=== PATIENT | female | born 1945 | race Caucasian/White ===

== ENCOUNTER → 2017-01-18 | Outpatient (REF) | payer MEDICARE ==
[~2017-01-18] MED LIST: /WARF25TA; /WARF25TA PO; ALEV220C2 PO; ALEVE PO; ALLO100T PO; ALLOPOW4 PO; APAP325T PO; ASPI81TA85 PO; ATOR40TA PO; ATORVASTATIN PO; BABY81CH PO; DARV100T; FISH500C PO; FISHCAP PO; GLUC15002 PO; GLUCTAB6; OMEGA 3 FISH OIL; OMEGA 3 PO; PERC5TAB8; PERCOCET PO; POT CITRATE PO; POTA10TAB PO; RECLAST INJ; THERGRAN PO; TYLE325T5 PO; VITA100T5; VITA500T68 PO; VITAMIN C/ROSE HIPS PO; [UNRECOGNIZED DRUG - OTHER]; [UNRECOGNIZED DRUG - OTHER] PO
[2017-01-18 12:45] LABS: ANION GAP 8 MEQ/L (8-16); BLOOD UREA NITROGEN 26 MG/DL (7-18); CALCIUM LEVEL 9.9 MG/DL (8.8-10.2); CARBON DIOXIDE LEVEL 28 MEQ/L (21-32); CHLORIDE LEVEL 108 MEQ/L (98-107); CREATININE FOR GFR 0.83 MG/DL (0.55-1.02); GLOMERULAR FILTRATION RATE > 60.0 (>39); GLUCOSE, FASTING 92 MG/DL (83-110); SODIUM LEVEL 144 MEQ/L (136-145)
== END ==
LOC: M LABDRAW1 11:33
PROVIDERS: ATTEND Internal Medicine Endocrinology, Diabetes & Metabolism
DX: M81.0 Age-related osteoporosis without current pathological fracture (principal); E04.0 Nontoxic diffuse goiter

== ENCOUNTER → 2017-02-22 | Outpatient (REF) | payer MEDICARE ==
[2017-02-22 13:17] LABS: TOTAL PROTEIN 6.7 GM/DL (6.4-8.2)
[2017-02-24 10:04] LABS: ALBUMIN 3.66 GM/DL (3.29-5.55); ALBUMIN % 54.7 % (55.8-66.1); GAMMA GLOBULIN % 13.9 % (11.1-18.8)
== END ==
LOC: M LAB REF 12:30
PROVIDERS: ATTEND Internal Medicine
DX: E83.52 Hypercalcemia (principal)

== ENCOUNTER → 2017-04-21 | Outpatient (REF) | payer MEDICARE ==
[2017-04-21 20:22] LABS: CALCIUM LEVEL 9.7 MG/DL (8.8-10.2); CREATININE FOR GFR 1.1 MG/DL (0.55-1.02); POTASSIUM SERUM 4.4 MEQ/L (3.5-5.1)
== END ==
LOC: M LABDRAW1 16:59
PROVIDERS: ATTEND Internal Medicine Endocrinology, Diabetes & Metabolism
DX: M81.0 Age-related osteoporosis without current pathological fracture (principal)

== ENCOUNTER → 2017-04-22 | Outpatient (REF) | payer MEDICARE | LOC: M LAB REF 16:24 | PROVIDERS: ATTEND Nurse Practitioner Adult Health | DX: N85.7 Hematometra (principal); N77.1 Vaginitis, vulvitis and vulvovaginitis in diseases classified elsewhere ==

== ENCOUNTER → 2017-10-11 | Outpatient (CLI) | payer MEDICARE ==
[~2017-10-11] MED LIST changes: -APAP325T PO; +APAP325T4 PO; -ATOR40TA PO; +ATOR40TA75 PO
--- NOTE | 2017-10-11 10:09 | REPMRS ---
Patient History The patient states she has not had a clinical breast exam in over a year. Family history of unknown cancer in father at age 65. Digital Mammo Screening Bilat: October 11, 2017 - Exam #: [id number] Bilateral CC and MLO view(s) were taken. Technologist: Argentina Mejia, Technologist Prior study comparison: September 23, 2016, bilateral digital mammo screening bilat performed at [facility]. August 07, 2015, bilateral digital mammo screening bilat performed at [facility]. FINDINGS: The breast tissue is heterogeneously dense. This may lower the sensitivity of mammography. There has been no change in the appearance of the mammogram from the prior studies. There is a moderate amount of residual fibroglandular tissue which is fairly symmetric. There is no interval development of dominant mass, areas of architectural distortion, or clustered microcalcification typical of malignancy. ASSESSMENT: BI-RADS/ACR category 1 mammogram. Negative. Recommendation Routine screening mammogram in 1 year (for women over age 40). This mammogram was interpreted with the aid of an FDA-approved computer-aided dectection system. Electronically Signed By: Alberto Perez MD 10/11/17 [id number]
== END ==
LOC: M RAD 08:25
PROVIDERS: ATTEND Internal Medicine
DX: Z12.31 Encounter for screening mammogram for malignant neoplasm of breast (principal)

== ENCOUNTER → 2018-01-17 | Outpatient (REF) | payer MEDICARE ==
[2018-01-17 13:06] LABS: ANION GAP 8 MEQ/L (8-16); BLOOD UREA NITROGEN 29 MG/DL (7-18); CALCIUM LEVEL 10.9 MG/DL (8.8-10.2); CARBON DIOXIDE LEVEL 29 MEQ/L (21-32); CHLORIDE LEVEL 103 MEQ/L (98-107); CREATININE FOR GFR 0.84 MG/DL (0.55-1.30); GLOMERULAR FILTRATION RATE > 60.0 (>39); GLUCOSE, FASTING 82 MG/DL (70-100); POTASSIUM SERUM 4.4 MEQ/L (3.5-5.1); SODIUM LEVEL 140 MEQ/L (136-145)
== END ==
LOC: M LABDRAW1 10:58
DX: M81.0 Age-related osteoporosis without current pathological fracture (principal)
CPT/HCPCS: 80048

== ENCOUNTER → 2018-10-12 | Outpatient (CLI) | payer MEDICARE | LOC: M RAD 10:09 | DX: Z12.31 Encounter for screening mammogram for malignant neoplasm of breast (principal) | CPT/HCPCS: 77067 ==

== ENCOUNTER → 2019-01-30 | Outpatient (REF) | payer MEDICARE ==
[~2019-01-30] MED LIST changes: +POTA10808 PO; -POTA10TAB PO
[2019-01-30 13:34] LABS: BLOOD UREA NITROGEN 29 MG/DL (7-18); CALCIUM LEVEL 10.5 MG/DL (8.8-10.2); CARBON DIOXIDE LEVEL 29 MEQ/L (21-32); CHLORIDE LEVEL 106 MEQ/L (98-107); CREATININE FOR GFR 0.83 MG/DL (0.55-1.30); GLOMERULAR FILTRATION RATE > 60.0 (>39); GLUCOSE, FASTING 87 MG/DL (70-100); POTASSIUM SERUM 4.6 MEQ/L (3.5-5.1); SODIUM LEVEL 141 MEQ/L (136-145)
[2019-01-30 13:45] LABS: TOTAL 25(OH) VITAMIN D 27.2 NG/ML (30.0-100.0)
== END ==
LOC: M LABDRAW1 12:53
PROVIDERS: ATTEND Internal Medicine Endocrinology, Diabetes & Metabolism
DX: M81.0 Age-related osteoporosis without current pathological fracture (principal); E04.0 Nontoxic diffuse goiter; E83.52 Hypercalcemia

== ENCOUNTER → 2019-02-28 | Outpatient (REF) | payer MEDICARE ==
[~2019-02-28] MED LIST changes: -/WARF25TA; -/WARF25TA PO; +COUM1TAB18; +COUM1TAB18 PO; +OXYC1TAB23 PO; -PERCOCET PO; +VITA-149 PO; -VITA500T68 PO
== END ==
LOC: M LAB REF 14:22
PROVIDERS: ATTEND Nurse Practitioner Family
DX: N76.1 Subacute and chronic vaginitis (principal)

== ENCOUNTER → 2019-09-07 | Outpatient (REF) | payer MEDICARE | LOC: M LAB REF 16:28 | PROVIDERS: ATTEND Registered Nurse | DX: N39.0 Urinary tract infection, site not specified (principal) ==

== ENCOUNTER → 2019-09-24 | Outpatient (REF) | payer MEDICARE | LOC: M LAB REF 12:38 | PROVIDERS: ATTEND Internal Medicine | DX: E83.52 Hypercalcemia (principal) ==

== ENCOUNTER → 2019-10-15 | Outpatient (CLI) | payer MEDICARE ==
--- NOTE | 2019-10-15 15:39 | REPMRS ---
Patient History The patient states she has not had a clinical breast exam in over a year. Family history of unknown cancer at age 65 in father. 3D TOMOSYNTHESIS WAS PERFORMED. The Gisela Harris lifetime risk for breast cancer is 2.9%. Digital Mammo Screening Bilat: October 15, 2019 - Exam #: [id number] Bilateral CC and MLO view(s) were taken. Technologist: Argentina Mejia, Technologist Prior study comparison: October 12, 2018, bilateral digital mammo screening bilat performed at [facility]. October 11, 2017, bilateral digital mammo screening bilat performed at [facility]. FINDINGS: The breast tissue is heterogeneously dense. This may lower the sensitivity of mammography. There has been no change in the appearance of the mammogram from the prior studies. There is a moderate amount of residual fibroglandular tissue which is fairly symmetric. There is no interval development of dominant mass, areas of architectural distortion, or clustered microcalcification typical of malignancy. Assessment: BI-RADS/ACR category 1 mammogram. Negative Mammogram. Recommendation Routine screening mammogram in 1 year (for women over age 40). This mammogram was interpreted with the aid of an FDA-approved computer-aided dectection system. Electronically Signed By: Alberto Perez MD 10/15/19 [id number]
== END ==
LOC: M RAD 08:20
PROVIDERS: ATTEND Internal Medicine
DX: Z12.31 Encounter for screening mammogram for malignant neoplasm of breast (principal)

== ENCOUNTER → 2019-11-23 | Outpatient (REF) | payer MEDICARE | LOC: M LAB REF 16:27 | PROVIDERS: ATTEND Registered Nurse | DX: N39.0 Urinary tract infection, site not specified (principal) ==

== ENCOUNTER → 2019-12-07 | Outpatient (REF) | payer MEDICARE ==
[2019-12-07 14:17] LABS: APPEARANCE, URINE CLEAR (CLEAR); BACTERIA, URINE AUTO NEGATIVE (NEGATIVE); BILIRUBIN, URINE AUTO NEGATIVE (NEGATIVE); BLOOD, URINE BLOOD NEGATIVE (NEGATIVE); COLOR, URINE YELLOW (YELLOW); GLUCOSE, URINE (UA) AUTO NEGATIVE (NEGATIVE); KETONE, URINE AUTO NEGATIVE (NEGATIVE); LEUKOCYTE ESTERASE, URINE AUTO NEGATIVE (NEGATIVE); MUCUS, URINE SMALL (NEGATIVE); NITRITE, URINE AUTO NEGATIVE (NEGATIVE); PROTEIN, URINE AUTO NEGATIVE (NEGATIVE); RBC, URINE AUTO 1 /HPF (0-3); SPECIFIC GRAVITY URINE AUTO 1.014 (1.002-1.035); SQUAMOUS EPITHELIAL CELL UR AU 0 /HPF (0-6); UROBILINOGEN, URINE AUTO 0.2 mg/dL (0.0-2.0); WBC, URINE AUTO 1 /HPF (0-3)
== END ==
LOC: M SMT 13:43
PROVIDERS: ATTEND Nurse Practitioner Family
DX: N39.0 Urinary tract infection, site not specified (principal); R32 Unspecified urinary incontinence
CPT/HCPCS: 51798; 81001; 87086; G0463

== ENCOUNTER → 2019-12-11 | Outpatient (CLI) | payer MEDICARE ==
--- NOTE | 2019-12-11 10:24 | REP ---
LIMITED PELVIC/BLADDER SONOGRAPHY: HISTORY: Urinary tract infection symptoms recurrent. FINDINGS: Visualized bladder cardenas are smooth. No extra-vesicle lesion is seen. Pre void bladder volume is calculated at 125 mL. Emptying ureteral jets are confirmed from both ureters on color Doppler interrogation of the bladder lumen. Postvoid imaging demonstrates calculated bladder volume of 11 mL (postvoid residual 8.8%). IMPRESSION: Unremarkable bladder sonography. Electronically Signed by Femi Gallego MD 12/11/2019 01:08 P
--- NOTE | 2019-12-11 10:24 | REP ---
URINARY TRACT SONOGRAPHY: History: UTI symptoms. Findings: Renal cortical echogenicity pattern is normal. There is no evidence of hydronephrosis on either side. Right renal dimensions are 10.0 x 4.9 x 5.5 cm. Left kidney measures 9.8 x 4.4 x 4.0 cm. There are bilateral renal cortical cysts. Two cysts are seen in the medial aspect of the right kidney measuring 2.0 and 1.7 cm in greatest diameter respectively. There is a lower pole cyst in the left kidney measuring 2.4 cm in greatest diameter. There are echogenic foci in the central renal sinus complex bilaterally which could reflect intrarenal calculi. Impression: Possible intrarenal calculi bilaterally. No hydronephrosis. Small bilateral renal cortical cysts. Electronically Signed by Femi Gallego MD 12/11/2019 01:09 P
== END ==
LOC: M RAD 08:25
PROVIDERS: ATTEND Nurse Practitioner Family
DX: N39.0 Urinary tract infection, site not specified (principal)

== ENCOUNTER → 2019-12-31 | Outpatient (REF) | payer MEDICARE ==
[2019-12-31 16:32] LABS: THYROID STIMULATING HORMONE 1.34 uIU/ML (0.358-3.740)
[2019-12-31 16:34] LABS: TOTAL 25(OH) VITAMIN D 44.4 NG/ML (30.0-100.0)
== END ==
LOC: M LABDRAW1 15:37
PROVIDERS: ATTEND Internal Medicine Endocrinology, Diabetes & Metabolism
DX: E04.0 Nontoxic diffuse goiter (principal); M81.0 Age-related osteoporosis without current pathological fracture

== ENCOUNTER → 2020-01-31 | Outpatient (REF) | payer MEDICARE ==
[2020-01-31 14:01] LABS: BACTERIA, URINE AUTO 1+ (NEGATIVE); MUCUS, URINE SMALL (NEGATIVE); RBC, URINE AUTO 3 /HPF (0-3); SQUAMOUS EPITHELIAL CELL UR AU 0 /HPF (0-6); WBC, URINE AUTO 66 /HPF (0-3)
== END ==
LOC: M SMT 13:00
PROVIDERS: ATTEND Specialist
DX: N39.0 Urinary tract infection, site not specified (principal)

== ENCOUNTER 2020-02-07 18:41 | Emergency (ER) | payer MEDICARE ==
[~2020-02-07] VITALS: Ht 162.6 cm; Wt 65.1 kg
[2020-02-07] MEDS ORDERED: dexameTHASONE 20 MG/5 ML VIAL (J1100) IV ONE (19:00)
[2020-02-07] MEDS ORDERED: NS 1,000 ML IV ONE (19:00)
[2020-02-07] MEDS ORDERED: FAMOTIDINE INJ 20MG/2ML VIAL (S0028) IVP ONE (19:00)
[2020-02-07] MEDS ORDERED: SULF1TAB93 (19:00)
[2020-02-07] MEDS ORDERED: METH-855 (19:04)
[2020-02-07] MEDS ORDERED: PRED10TA2 PO (19:04)
[2020-02-07 19:13] LABS: BASO # 0.1 10^3/uL (0.0-0.2); BASO % 0.7 % (0.0-1.0); EOS # 0.3 10^3/uL (0.0-0.5); EOS % 4.2 % (0.0-3.0); HEMATOCRIT 47.8 % (36.0-47.0); HEMOGLOBIN 15.5 g/dl (12.0-15.5); LYMPH # 3.4 10^3/uL (1.5-5.0); LYMPH % 47.6 % (24.0-44.0); MEAN CORPUSCULAR HEMOGLOBIN 28.9 pg (27.0-33.0); MEAN CORPUSCULAR HGB CONC 32.4 g/dl (32.0-36.5); MONO # 0.4 10^3/uL (0.0-0.8); MONO % 5.8 % (0.0-5.0); NEUTROPHILS % 41.4 % (36.0-66.0); PLATELET COUNT, AUTOMATED 350 10^3/uL (150-450); RED BLOOD COUNT 5.37 10^6/uL (4.00-5.40); WHITE BLOOD COUNT 7.2 10^3/uL (4.0-10.0)
[2020-02-07] MEDS ORDERED: EPINEPHrine INJ 1 MG/ML 1ML VIAL IM STA (19:14)
[2020-02-07] MEDS ORDERED: EPINEPHrine INJ 1 MG/ML 1ML VIAL As Ordered ONE (19:16)
[2020-02-07 19:29] LABS: CALCIUM LEVEL 10.8 MG/DL (8.8-10.2); CREATININE FOR GFR 1.19 MG/DL (0.55-1.30); GLOMERULAR FILTRATION RATE 47.1 (>39); POTASSIUM SERUM 4.1 MEQ/L (3.5-5.1)
--- NOTE | 2020-02-07 19:47 | REP ---
Portable chest x-ray: Single view. History: Dyspnea and cough. Comparison chest x-ray: April 25, 2014. Findings: EKG electrodes are seen. Right hemidiaphragm is somewhat elevated. Lungs are well inflated and clear. Heart is not enlarged. Pulmonary vasculature is not increased. Impression: No active disease. Electronically Signed by Femi Gallego MD 02/07/2020 07:49 P
[2020-02-07 23:30] VITALS: BP 132/79
== END 2020-02-07 23:56 | disposition home or self-care (01) ==
LOC: M ED 18:41
DX: R21 Rash and other nonspecific skin eruption (principal); R22.1 Localized swelling, mass and lump, neck; T36.8X5A Adverse effect of other systemic antibiotics, initial encounter; Y92.099 Unspecified place in other non-institutional residence as the place of occurrence of the external cause; Y93.9 Activity, unspecified; M81.0 Age-related osteoporosis without current pathological fracture; E78.5 Hyperlipidemia, unspecified; Z87.442 Personal history of urinary calculi; Z87.440 Personal history of urinary (tract) infections; Z86.19 Personal history of other infectious and parasitic diseases; Z79.82 Long term (current) use of aspirin; Z79.899 Other long term (current) drug therapy; Z88.5 Allergy status to narcotic agent
CPT/HCPCS: 36415; 71045; 80048; 85025; 93041; 94760; 96361; 96372; 96374; 96375; 99285; J1100

== ENCOUNTER → 2020-05-07 | Outpatient (REF) | payer MEDICARE ==
[~2020-05-07] MED LIST changes: +METH-855; +PRED10TA2 PO; +SULF1TAB93
== END ==
LOC: M LAB REF 12:07
PROVIDERS: ATTEND Internal Medicine
DX: M54.2 Cervicalgia (principal)

== ENCOUNTER → 2020-05-16 | Outpatient (CLI) | payer MEDICARE ==
[2020-05-16 16:12] LABS: CREATININE FOR GFR 1.1 MG/DL (0.55-1.30); GLOMERULAR FILTRATION RATE 51.5 (>39)
== END ==
LOC: M LAB 15:28
PROVIDERS: ATTEND Physical Medicine & Rehabilitation
DX: M50.31 Other cervical disc degeneration, high cervical region (principal)

== ENCOUNTER → 2020-09-19 | Outpatient (REF) | payer MEDICARE ==
[~2020-09-19] MED LIST changes: -ASPI81TA85 PO; +ASPI81TA86 PO
== END ==
LOC: M LAB REF 12:41
PROVIDERS: ATTEND Internal Medicine
DX: R19.7 Diarrhea, unspecified (principal)

== ENCOUNTER → 2020-10-16 | Outpatient (REF) | payer MEDICARE ==
[2020-10-16 17:28] LABS: AMORPHOUS SEDIMENT SMALL (NEGATIVE); APPEARANCE, URINE HAZY (CLEAR); BACTERIA, URINE AUTO NEGATIVE (NEGATIVE); BILIRUBIN, URINE AUTO NEGATIVE (NEGATIVE); BLOOD, URINE BLOOD NEGATIVE (NEGATIVE); CALCIUM OXALATE CRYSTALS SMALL; COLOR, URINE YELLOW (YELLOW); GLUCOSE, URINE (UA) AUTO NEGATIVE (NEGATIVE); KETONE, URINE AUTO NEGATIVE (NEGATIVE); LEUKOCYTE ESTERASE, URINE AUTO TRACE (NEGATIVE); MUCUS, URINE SMALL (NEGATIVE); NITRITE, URINE AUTO NEGATIVE (NEGATIVE); PROTEIN, URINE AUTO NEGATIVE (NEGATIVE); RBC, URINE AUTO 0 /HPF (0-3); SPECIFIC GRAVITY URINE AUTO 1.015 (1.002-1.035); SQUAMOUS EPITHELIAL CELL UR AU 0 /HPF (0-6); UROBILINOGEN, URINE AUTO 0.2 mg/dL (0.0-2.0); WBC, URINE AUTO 2 /HPF (0-3)
== END ==
LOC: M SMT 17:07
PROVIDERS: ATTEND Nurse Practitioner Women's Health
DX: R30.0 Dysuria (principal)

== ENCOUNTER → 2021-03-04 | Outpatient (CLI) | payer MEDICARE ==
--- NOTE | 2021-03-04 13:43 | REPMRS ---
Patient History The patient states she has not had a clinical breast exam in over a year. Family history of unknown cancer at age 65 in father. 3D TOMOSYNTHESIS WAS PERFORMED. The Gisela Harris lifetime risk for breast cancer is 2.6%. Volpara breast density c. Digital Woman Screen Mammo: March 04, 2021 - Exam #: [id number] Bilateral CC and MLO view(s) were taken. Technologist: Amada Mackey, Technologist Prior study comparison: October 15, 2019, bilateral digital mammo screening bilat, performed at [facility]. October 12, 2018, bilateral digital mammo screening bilat, performed at [facility]. FINDINGS: The breast tissue is heterogeneously dense. This may lower the sensitivity of mammography. There has been no change in the appearance of the mammogram from the prior studies. There is a moderate amount of residual fibroglandular tissue which is fairly symmetric. There is no interval development of dominant mass, areas of architectural distortion, or clustered microcalcification typical of malignancy. Assessment: BI-RADS/ACR category 1 mammogram. Negative Mammogram. Recommendation Routine screening mammogram in 1 year (for women over age 40). This mammogram was interpreted with the aid of an FDA-approved computer-aided dectection system. Electronically Signed By: Alberto Perez MD 03/04/21 [id number]
== END ==
LOC: M WHC 12:49
PROVIDERS: ATTEND Internal Medicine
DX: Z12.31 Encounter for screening mammogram for malignant neoplasm of breast (principal); Z80.9 Family history of malignant neoplasm, unspecified

== ENCOUNTER → 2021-03-26 | Outpatient (REF) | payer MEDICARE ==
[2021-03-26 15:36] LABS: APPEARANCE, URINE CLEAR (CLEAR); BACTERIA, URINE AUTO NEGATIVE (NEGATIVE); BILIRUBIN, URINE AUTO NEGATIVE (NEGATIVE); BLOOD, URINE BLOOD NEGATIVE (NEGATIVE); COLOR, URINE YELLOW (YELLOW); GLUCOSE, URINE (UA) AUTO NEGATIVE (NEGATIVE); KETONE, URINE AUTO NEGATIVE (NEGATIVE); LEUKOCYTE ESTERASE, URINE AUTO 1+ (NEGATIVE); MUCUS, URINE SMALL (NEGATIVE); NITRITE, URINE AUTO NEGATIVE (NEGATIVE); PROTEIN, URINE AUTO NEGATIVE (NEGATIVE); RBC, URINE AUTO 0 /HPF (0-3); SPECIFIC GRAVITY URINE AUTO 1.018 (1.002-1.035); SQUAMOUS EPITHELIAL CELL UR AU 0 /HPF (0-6); UROBILINOGEN, URINE AUTO 0.2 mg/dL (0.0-2.0); WBC, URINE AUTO 1 /HPF (0-3)
== END ==
LOC: M SMT 14:58
PROVIDERS: ATTEND Nurse Practitioner Family
DX: R30.0 Dysuria (principal)

== ENCOUNTER → 2021-05-18 | Outpatient (REF) | payer MEDICARE ==
[~2021-05-18] MED LIST changes: +BACTDSTA; -SULF1TAB93
== END ==
LOC: M LAB REF 16:23
PROVIDERS: ATTEND Internal Medicine
DX: E83.52 Hypercalcemia (principal)

== ENCOUNTER → 2021-05-30 | Outpatient (CLI) | payer MEDICARE ==
--- NOTE | 2021-05-30 14:23 | REPVR ---
PROCEDURE INFORMATION: Exam: MR Lumbar Spine Without Contrast Exam date and time: 05/30/2021 1:15 PM Age: 75 years old Clinical indication: Low back pain; Additional info: Disc degeneration lumbar region TECHNIQUE: Imaging protocol: Multiplanar magnetic resonance images of the lumbar spine without intravenous contrast. COMPARISON: BLADDER (LIMITED PELVIC) US 12/11/2019 8:44 AM FINDINGS: Vertebrae: No acute compression fracture is seen. There is 4 mm of retrolisthesis of L2 on L3. There is 6 mm of anterolisthesis of L4 on L5 due to severe facet arthropathy. Spinal cord: The conus medullaris terminates at the L1 level. There is no evidence of arachnoiditis or cauda equina compression. L1-L2: There is mild diffuse circumferential disc bulging, moderate facet arthropathy, and thickening of the ligamentum flavum. This is causing minimal spinal canal stenosis, mild narrowing of the left subarticular recess, and mild left neural foraminal narrowing. There is no right foraminal stenosis. L2-L3: There is disc dehydration, moderate disc space narrowing, marked diffuse circumferential disc bulging, right foraminal and extraforaminal osteophytic ridging, moderate facet arthropathy, and thickening of the ligamentum flavum. This is causing mild spinal canal stenosis, moderate narrowing of the subarticular recesses, moderate/severe right neural foraminal narrowing, and mild/moderate left neural foraminal narrowing. L3-L4: There is mild diffuse circumferential disc bulging with a superimposed shallow left foraminal and extraforaminal disc protrusion. Moderate facet arthropathy and marked thickening of the ligamentum flavum is also present. This is causing mild spinal canal stenosis, mild narrowing of the subarticular recesses, and mild bilateral neural foraminal narrowing. L4-L5: There is disc dehydration, severe disc space narrowing, moderate diffuse circumferential disc bulging, severe facet arthropathy, and thickening of the ligamentum flavum. This is causing moderate spinal canal stenosis, severe narrowing of the subarticular recesses, severe left neural foraminal narrowing, and moderate right neural foraminal narrowing. There is marked compression of the exiting left L4 nerve within the left neural foramina. L5-S1: There is disc dehydration, moderate disc space narrowing, moderate diffuse circumferential disc bulging, bilateral foraminal and extraforaminal osteophytic ridging, and mild facet arthropathy. There is no spinal canal stenosis. Moderate bilateral neural foraminal narrowing is present. Soft tissues: Unremarkable. Kidneys and ureters: Small bilateral renal cysts are noted. The left kidney appears mildly atrophic. IMPRESSION: Marked degenerative changes of the lumbar spine as discussed above. There is no severe spinal canal stenosis. Severe left neural foraminal narrowing is present at L4-L5 with compression of the exiting left L4 nerve. Electronically signed by: Laron Simeon On 05/30/2021 14:23:14 PM
== END ==
LOC: M RAD 12:22
PROVIDERS: ATTEND Orthopaedic Surgery
DX: M54.16 Radiculopathy, lumbar region (principal)

== ENCOUNTER → 2021-08-04 | Outpatient (CLI) | payer MEDICARE ==
[2021-08-04 09:20] LABS: PLATELET COUNT, AUTOMATED 288 10^3/uL (150-450)
[2021-08-04 09:30] LABS: PROTHROMBIN TIME 12.7 SECONDS (12.7-14.5)
[2021-08-04 09:31] LABS: INR 0.92
[2021-08-04 09:37] LABS: COLLAGEN EPINEPHRINE 144 SECONDS (74-162)
== END ==
LOC: M LAB 08:57
PROVIDERS: ATTEND Physical Medicine & Rehabilitation
DX: M54.5 Low back pain (principal); Z79.01 Long term (current) use of anticoagulants

== ENCOUNTER 2021-08-16 08:36 | Emergency (ER) | payer MEDICARE ==
[~2021-08-16] VITALS: Ht 162.6 cm; Wt 59.5 kg
[2021-08-16 11:00] VITALS: BP 130/65
== END 2021-08-16 11:00 | disposition home or self-care (01) ==
LOC: M ED 08:36
DX: H11.32 Conjunctival hemorrhage, left eye (principal); E78.5 Hyperlipidemia, unspecified; M81.0 Age-related osteoporosis without current pathological fracture; Z87.442 Personal history of urinary calculi; E83.52 Hypercalcemia; M10.9 Gout, unspecified; Z88.5 Allergy status to narcotic agent; Z79.82 Long term (current) use of aspirin; Z79.899 Other long term (current) drug therapy

== ENCOUNTER → 2021-11-10 | Outpatient (REF) | payer MEDICARE | LOC: M LAB REF 16:32 | PROVIDERS: ATTEND Registered Nurse | DX: N76.0 Acute vaginitis (principal) ==

== ENCOUNTER → 2021-12-24 | Outpatient (CLI) | payer MEDICARE ==
[~2021-12-24] MED LIST changes: +ACET650T15 PO; +ALLO300T2 PO; +ASPI-161 PO; +D31000TA2 PO; +FISH1000 PO; +GLUCTAB6 PO; +HYDR-3715 PO; +MULTCHW12 PO; +NAPR-849 PO; +TRAM50TA2 PO
== END ==
LOC: M WHC 13:54
PROVIDERS: ATTEND Internal Medicine Endocrinology, Diabetes & Metabolism
DX: M81.0 Age-related osteoporosis without current pathological fracture (principal)

== ENCOUNTER → 2022-01-04 | Outpatient (CLI) | payer MEDICARE ==
[~2022-01-04] MED LIST changes: -ACET650T15 PO; -ALLO300T2 PO; -ASPI-161 PO; -D31000TA2 PO; -FISH1000 PO; -GLUCTAB6 PO; -HYDR-3715 PO; -MULTCHW12 PO; -NAPR-849 PO; -TRAM50TA2 PO
[2022-01-04 11:30] LABS: BLOOD UREA NITROGEN 30 MG/DL (7-18); CALCIUM LEVEL 10.7 MG/DL (8.8-10.2); CARBON DIOXIDE LEVEL 28 MEQ/L (21-32); CHLORIDE LEVEL 105 MEQ/L (98-107); CREATININE FOR GFR 0.86 MG/DL (0.55-1.30); GLOMERULAR FILTRATION RATE > 60.0 (>39); GLUCOSE, FASTING 72 MG/DL (70-100); POTASSIUM SERUM 4.9 MEQ/L (3.5-5.1); SODIUM LEVEL 139 MEQ/L (136-145)
[2022-01-04 14:47] LABS: TOTAL 25(OH) VITAMIN D 40.5 NG/ML (30.0-100.0)
== END ==
LOC: M PLALAB 07:54
PROVIDERS: ATTEND Internal Medicine Endocrinology, Diabetes & Metabolism
DX: E04.0 Nontoxic diffuse goiter (principal); M81.0 Age-related osteoporosis without current pathological fracture

== ENCOUNTER → 2022-01-19 | Outpatient (CLI) | payer MEDICARE ==
[~2022-01-19] MED LIST changes: +ACET650T15 PO; +ALLO300T2 PO; +ASPI-161 PO; +D31000TA2 PO; +FISH1000 PO; +GLUCTAB6 PO; +HYDR-3715 PO; +MULTCHW12 PO; +NAPR-849 PO; +TRAM50TA2 PO
[2022-01-19 14:54] LABS: CALCIUM LEVEL 11.3 MG/DL (8.8-10.2); PHOSPHORUS LEVEL 3.4 MG/DL (2.5-4.9); PTH INTACT 80.9 PG/ML (18.5-88.0)
== END ==
LOC: M PLALAB 10:11
PROVIDERS: ATTEND Internal Medicine Endocrinology, Diabetes & Metabolism
DX: E83.52 Hypercalcemia (principal)

== ENCOUNTER 2022-01-20 12:45 | Inpatient (IN) | payer MEDICARE ==
[~2022-01-20] VITALS: Ht 160 cm; Wt 66.3 kg
[~2022-01-20 12:45] MED LIST changes: -ACET650T15 PO; -ALLO300T2 PO; -ASPI-161 PO; -D31000TA2 PO; -FISH1000 PO; -GLUCTAB6 PO; -HYDR-3715 PO; -MULTCHW12 PO; -NAPR-849 PO; -TRAM50TA2 PO
[2022-01-20] MEDS ORDERED: TRAM50TA2 PO (13:04)
[2022-01-20] MEDS ORDERED: NS 1,000 ML IV ONE (14:15)
[2022-01-20] MEDS ORDERED: ONDANSETRON 4MG/2ML VIAL IV ONE (14:15)
[2022-01-20 14:32] LABS: BASO % 0.3 % (0.0-1.0); EOS # 0.1 10^3/uL (0.0-0.5); EOS % 0.6 % (0.0-3.0); LYMPH # 2.5 10^3/uL (1.5-5.0); LYMPH % 16.4 % (24.0-44.0); MEAN CORPUSCULAR HEMOGLOBIN 29.8 pg (27.0-33.0); MEAN CORPUSCULAR HGB CONC 32.6 g/dl (32.0-36.5); MEAN CORPUSCULAR VOLUME 91.3 fl (80.0-96.0); MONO # 0.7 10^3/uL (0.0-0.8); MONO % 4.8 % (2.0-8.0); NEUTROPHILS % 77.2 % (36.0-66.0); PLATELET COUNT, AUTOMATED 294 10^3/uL (150-450); RED BLOOD COUNT 5.04 10^6/uL (4.00-5.40); WHITE BLOOD COUNT 15.5 10^3/uL (4.0-10.0)
[2022-01-20 14:44] LABS: PARTIAL THROMBOPLASTIN TIME 27.2 SECONDS (25.9-37.0)
[2022-01-20] MEDS ORDERED: ISOVUE-370 76% 100ML VIAL As Ordered ONE (14:44)
[2022-01-20 14:51] LABS: INR 0.95; PROTHROMBIN TIME 13.1 SECONDS (12.7-14.5)
[2022-01-20 15:02] LABS: ALT/SGPT 37 U/L (12-78); AMYLASE 119 U/L (25-115); BILIRUBIN,DIRECT 0.2 MG/DL (0.0-0.2); BILIRUBIN,TOTAL 0.6 MG/DL (0.2-1.0); BLOOD UREA NITROGEN 30 MG/DL (7-18); CALCIUM LEVEL 11.1 MG/DL (8.8-10.2); CARBON DIOXIDE LEVEL 20 MEQ/L (21-32); CHLORIDE LEVEL 108 MEQ/L (98-107); CREATININE FOR GFR 0.89 MG/DL (0.55-1.30); GLOMERULAR FILTRATION RATE > 60.0 (>39); GLUCOSE, FASTING 111 MG/DL (70-100); LIPASE 253 U/L (73-393); POTASSIUM SERUM 3.8 MEQ/L (3.5-5.1); SODIUM LEVEL 137 MEQ/L (136-145); TOTAL PROTEIN 7.4 GM/DL (6.4-8.2)
[2022-01-20 15:09] LABS: MB/CK RELATIVE INDEX 2.31 (< OR =4)
[2022-01-20 15:29] LABS: RSV AMPLIFICATION NEGATIVE (NEGATIVE)
[2022-01-20] MEDS ORDERED: D31000TA2 PO (18:33)
[2022-01-20] MEDS ORDERED: ACET650T15 PO (18:33)
[2022-01-20] MEDS ORDERED: GLUCTAB6 PO (18:33)
[2022-01-20] MEDS ORDERED: FISH1000 PO (18:33)
[2022-01-20] MEDS ORDERED: MULTCHW12 PO (18:33)
[2022-01-20] MEDS ORDERED: ALLO300T2 PO (18:33)
[2022-01-20] MEDS ORDERED: ASPI-161 PO (18:33)
[2022-01-20] MEDS ORDERED: HOME MED LIST COMPLETE! XX SCH (18:40)
[2022-01-20] MEDS ORDERED: ACETAMINOPHEN 500 MG TAB PO PRN (19:10)
[2022-01-20] MEDS ORDERED: NORCO, ANEXSIA 5/325MG TABLET (HYDROcodone/ACETAMINOPHEN) PO PRN (19:40)
[2022-01-20] MEDS: DOCUSATE SODIUM 100MG CAPSULE PO SCH (20:48)
[2022-01-20 22:15] VITALS: BP 101/61
[2022-01-21 06:00] VITALS: BP 108/60
[2022-01-21] MEDS: NORCO, ANEXSIA 5/325MG TABLET (HYDROcodone/ACETAMINOPHEN) PO PRN ×3 (06:02→15:56)
[2022-01-21] MEDS: POTASSIUM CITRATE 1080 MG (10MEQ) TAB PO SCH (08:39)
[2022-01-21] MEDS: DOCUSATE SODIUM 100MG CAPSULE PO SCH ×2 (08:39→20:06)
[2022-01-21] MEDS: MIRALAX *UNIT DOSE* 17GM PACKET PO SCH (08:39)
[2022-01-21] MEDS: ASPIRIN 81MG ENTERIC TABLET PO SCH (08:40)
[2022-01-21] MEDS: ATORVASTATIN 20 MG TAB PO SCH (08:40)
[2022-01-21] MEDS: VITAMIN D 1,000 INTERNATIONAL UNITS TABLET PO SCH (08:40)
[2022-01-21] MEDS: allopurinoL 300 MG TAB PO SCH (08:40)
[2022-01-21 09:31] LABS: BLOOD UREA NITROGEN 28 MG/DL (7-18); CALCIUM LEVEL 10.1 MG/DL (8.8-10.2); CARBON DIOXIDE LEVEL 26 MEQ/L (21-32); CHLORIDE LEVEL 107 MEQ/L (98-107); GLOMERULAR FILTRATION RATE > 60.0 (>39); GLUCOSE, FASTING 93 MG/DL (70-100); POTASSIUM SERUM 4.5 MEQ/L (3.5-5.1); SODIUM LEVEL 139 MEQ/L (136-145)
[2022-01-21 10:54] LABS: PTH INTACT 70.7 PG/ML (18.5-88.0)
[2022-01-21] MEDS: NAPROXEN 250 MG TAB PO SCH ×2 (11:09→20:06)
[2022-01-21 14:00] VITALS: BP 106/59
[2022-01-21 16:44] VITALS: BP_SYST 108; BP_SYST 114; BP_DIAS 58; BP_DIAS 89
[2022-01-21 16:45] VITALS: BP 123/66
[2022-01-21 20:37] VITALS: BP 117/65
[2022-01-22 04:51] VITALS: BP 147/86
[2022-01-22] MEDS: NORCO, ANEXSIA 5/325MG TABLET (HYDROcodone/ACETAMINOPHEN) PO PRN ×2 (05:12→18:11)
[2022-01-22] MEDS: POTASSIUM CITRATE 1080 MG (10MEQ) TAB PO SCH (08:54)
[2022-01-22] MEDS: allopurinoL 300 MG TAB PO SCH (08:55)
[2022-01-22] MEDS: ASPIRIN 81MG ENTERIC TABLET PO SCH (08:55)
[2022-01-22] MEDS: ATORVASTATIN 20 MG TAB PO SCH (08:55)
[2022-01-22] MEDS: DOCUSATE SODIUM 100MG CAPSULE PO SCH ×2 (08:55→20:12)
[2022-01-22 08:57] LABS: BASO # 0.1 10^3/uL (0.0-0.2); BASO % 0.6 % (0.0-1.0); EOS # 0.3 10^3/uL (0.0-0.5); EOS % 4.1 % (0.0-3.0); HEMATOCRIT 35.9 % (36.0-47.0); LYMPH # 1.2 10^3/uL (1.5-5.0); LYMPH % 15.7 % (24.0-44.0); MEAN CORPUSCULAR HEMOGLOBIN 30.3 pg (27.0-33.0); MEAN CORPUSCULAR VOLUME 94.5 fl (80.0-96.0); MONO # 0.5 10^3/uL (0.0-0.8); NEUTROPHILS # 5.7 10^3/uL (1.5-8.5); NEUTROPHILS % 73.2 % (36.0-66.0); PLATELET COUNT, AUTOMATED 193 10^3/uL (150-450); WHITE BLOOD COUNT 7.8 10^3/uL (4.0-10.0)
[2022-01-22] MEDS: MIRALAX *UNIT DOSE* 17GM PACKET PO SCH (08:58)
[2022-01-22] MEDS: VITAMIN D 1,000 INTERNATIONAL UNITS TABLET PO SCH (08:58)
[2022-01-22] MEDS: NAPROXEN 250 MG TAB PO SCH ×2 (08:58→20:13)
[2022-01-22 09:04] LABS: HEMOGLOBIN 11.5 g/dl (12.0-15.5)
[2022-01-22 09:20] LABS: CALCIUM LEVEL 10.1 MG/DL (8.8-10.2); CREATININE FOR GFR 0.96 MG/DL (0.55-1.30); POTASSIUM SERUM 4.4 MEQ/L (3.5-5.1)
[2022-01-22 14:00] VITALS: BP 98/56
[2022-01-22 17:26] VITALS: BP 126/67
[2022-01-22 20:50] VITALS: BP 107/58
[2022-01-22 21:30] VITALS: BP 109/59
[2022-01-23 06:00] VITALS: BP 110/64
[2022-01-23 09:00] VITALS: BP 127/63
[2022-01-23] MEDS: MIRALAX *UNIT DOSE* 17GM PACKET PO SCH (09:40)
[2022-01-23] MEDS: ATORVASTATIN 20 MG TAB PO SCH (09:42)
[2022-01-23] MEDS: POTASSIUM CITRATE 1080 MG (10MEQ) TAB PO SCH (09:42)
[2022-01-23] MEDS: NAPROXEN 250 MG TAB PO SCH (09:42)
[2022-01-23] MEDS: DOCUSATE SODIUM 100MG CAPSULE PO SCH (09:42)
[2022-01-23] MEDS: ASPIRIN 81MG ENTERIC TABLET PO SCH (09:43)
[2022-01-23] MEDS: VITAMIN D 1,000 INTERNATIONAL UNITS TABLET PO SCH (09:43)
[2022-01-23] MEDS: allopurinoL 300 MG TAB PO SCH (09:43)
[2022-01-23] MEDS ORDERED: NAPR-849 PO (12:32)
[2022-01-23] MEDS ORDERED: HYDR-3715 PO (12:32)
[2022-01-23 14:00] VITALS: BP 111/62
== END 2022-01-23 15:02 | disposition home or self-care (01) | DRG 536 ==
LOC: M ED 12:45 → M ED INP 17:56 → M MSPAV 22:15
PROVIDERS: ADMIT Internal Medicine Nephrology; ATTEND Internal Medicine Nephrology
DX: S32.512A Fracture of superior rim of left pubis, initial encounter for closed fracture (principal); S32.592A Other specified fracture of left pubis, initial encounter for closed fracture; W11.XXXA Fall on and from ladder, initial encounter; E83.52 Hypercalcemia; Y92.9 Unspecified place or not applicable; Y99.9 Unspecified external cause status; Y93.9 Activity, unspecified; M10.9 Gout, unspecified; N32.81 Overactive bladder; M81.0 Age-related osteoporosis without current pathological fracture; E78.5 Hyperlipidemia, unspecified; R55 Syncope and collapse; Z87.442 Personal history of urinary calculi; Z79.82 Long term (current) use of aspirin; Z88.2 Allergy status to sulfonamides; Z79.899 Other long term (current) drug therapy; Z91.030 Bee allergy status; Z85.828 Personal history of other malignant neoplasm of skin; Z96.653 Presence of artificial knee joint, bilateral; Z20.822 Contact with and (suspected) exposure to COVID-19

== ENCOUNTER → 2022-02-01 | Outpatient (CLI) | payer MEDICARE ==
[~2022-02-01] MED LIST changes: +ACET650T15 PO; +ALLO300T2 PO; +ASPI-161 PO; +FISH1000 PO; +GLUCTAB6 PO; +HYDR-3715 PO; +MULTCHW12 PO; +NAPR-849 PO; +TRAM50TA2 PO; +VITA100093 PO
== END ==
LOC: M SOG 11:13
PROVIDERS: ATTEND Orthopaedic Surgery Adult Reconstructive Orthopaedic Surgery
DX: R10.2 Pelvic and perineal pain (principal)

== ENCOUNTER → 2022-03-01 | Outpatient (CLI) | payer MEDICARE ==
[2022-03-01 14:22] LABS: BLOOD UREA NITROGEN 17 MG/DL (7-18); CALCIUM LEVEL 10.5 MG/DL (8.8-10.2); CARBON DIOXIDE LEVEL 28 MEQ/L (21-32); CHLORIDE LEVEL 106 MEQ/L (98-107); GLOMERULAR FILTRATION RATE > 60.0 (>39); GLUCOSE, FASTING 92 MG/DL (70-100); POTASSIUM SERUM 4.8 MEQ/L (3.5-5.1); SODIUM LEVEL 138 MEQ/L (136-145)
== END ==
LOC: M PLALAB 09:15
PROVIDERS: ATTEND Internal Medicine Endocrinology, Diabetes & Metabolism
DX: M81.0 Age-related osteoporosis without current pathological fracture (principal)

== ENCOUNTER → 2022-03-03 | Outpatient (CLI) | payer MEDICARE | LOC: M SOG 08:10 | PROVIDERS: ATTEND Orthopaedic Surgery Adult Reconstructive Orthopaedic Surgery | DX: S32.592D Other specified fracture of left pubis, subsequent encounter for fracture with routine healing (principal); W18.30XD Fall on same level, unspecified, subsequent encounter ==

== ENCOUNTER → 2022-03-15 | Outpatient (CLI) | payer MEDICARE ==
[2022-03-15 13:33] LABS: PLATELET COUNT, AUTOMATED 312 10^3/uL (150-450)
[2022-03-15 13:46] LABS: INR 0.92; PROTHROMBIN TIME 12.8 SECONDS (12.7-14.5)
[2022-03-15 13:47] LABS: PARTIAL THROMBOPLASTIN TIME 33.4 SECONDS (25.9-37.0)
== END ==
LOC: M PLALAB 11:14
PROVIDERS: ATTEND Physician Assistant
DX: M51.36 Other intervertebral disc degeneration, lumbar region (principal)

== ENCOUNTER → 2022-04-30 | Outpatient (REF) | payer MEDICARE ==
[~2022-04-30] MED LIST changes: -GLUCTAB6 PO; +GLUCTAB7 PO
== END ==
LOC: M LAB REF 12:13
PROVIDERS: ATTEND Internal Medicine
DX: E83.52 Hypercalcemia (principal)

== ENCOUNTER → 2022-05-17 | Outpatient (CLI) | payer MEDICARE ==
[2022-05-17 11:12] LABS: BLOOD UREA NITROGEN 24 MG/DL (7-18); CALCIUM LEVEL 9.7 MG/DL (8.8-10.2); CARBON DIOXIDE LEVEL 28 MEQ/L (21-32); CHLORIDE LEVEL 110 MEQ/L (98-107); CREATININE FOR GFR 0.84 MG/DL (0.55-1.30); GLOMERULAR FILTRATION RATE > 60.0 (>39); GLUCOSE, FASTING 99 MG/DL (70-100); SODIUM LEVEL 143 MEQ/L (136-145)
== END ==
LOC: M PLALAB 07:43
PROVIDERS: ATTEND Internal Medicine Endocrinology, Diabetes & Metabolism
DX: M81.0 Age-related osteoporosis without current pathological fracture (principal)

== ENCOUNTER → 2022-06-14 | Outpatient (CLI) | payer MEDICARE | LOC: M WHC 08:58 | PROVIDERS: ATTEND Internal Medicine | DX: Z12.31 Encounter for screening mammogram for malignant neoplasm of breast (principal) ==

== ENCOUNTER → 2022-09-02 | Outpatient (REF) | payer MEDICARE | LOC: M LAB REF 09:22 | PROVIDERS: ATTEND Physician Assistant Medical | DX: R19.7 Diarrhea, unspecified (principal) ==

== ENCOUNTER → 2022-10-29 | Outpatient (REF) | payer MEDICARE | LOC: M LAB REF 12:16 | PROVIDERS: ATTEND Internal Medicine | DX: E83.52 Hypercalcemia (principal); R30.0 Dysuria ==

== ENCOUNTER → 2023-06-15 | Outpatient (CLI) | payer MEDICARE | LOC: M WHC 10:36 | PROVIDERS: ATTEND Internal Medicine | DX: Z12.31 Encounter for screening mammogram for malignant neoplasm of breast (principal) ==

== ENCOUNTER → 2023-06-15 | Outpatient (CLI) | payer MEDICARE | LOC: M WHC 10:40 | PROVIDERS: ATTEND Internal Medicine Endocrinology, Diabetes & Metabolism | DX: M81.0 Age-related osteoporosis without current pathological fracture (principal) ==

== ENCOUNTER → 2023-06-22 | Outpatient (CLI) | payer MEDICARE | LOC: M WHC 08:46 | PROVIDERS: ATTEND Internal Medicine Endocrinology, Diabetes & Metabolism | DX: M81.0 Age-related osteoporosis without current pathological fracture (principal) ==

== ENCOUNTER → 2023-07-27 | Outpatient (REF) | payer MEDICARE | LOC: M LAB REF 16:11 | PROVIDERS: ATTEND Internal Medicine | DX: N39.0 Urinary tract infection, site not specified (principal) ==

== ENCOUNTER → 2023-08-15 | Outpatient (CLI) | payer MEDICARE ==
[2023-08-15 14:36] LABS: CALCIUM LEVEL 9.6 MG/DL (8.3-10.6)
== END ==
LOC: M PLALAB 08:52
PROVIDERS: ATTEND Internal Medicine Endocrinology, Diabetes & Metabolism
DX: E83.52 Hypercalcemia (principal)

== ENCOUNTER 2023-09-15 07:01 | Emergency (ER) | payer MEDICARE ==
[~2023-09-15] VITALS: Ht 162.6 cm; Wt 61.4 kg
[2023-09-15] MEDS ORDERED: ROMO105S SQ (07:33)
[2023-09-15] MEDS ORDERED: CINA30TA5 (07:33)
[2023-09-15] MEDS ORDERED: NS 1,000 ML IV ONE (08:35)
[2023-09-15] MEDS ORDERED: DICYCLOMINE 10 MG CAP PO ONE ×2 (08:35→12:00)
[2023-09-15 09:02] LABS: BASO # 0.1 10^3/uL (0.0-0.2); BASO % 0.8 % (0.0-1.0); EOS # 0.1 10^3/uL (0.0-0.5); HEMATOCRIT 36.2 % (36.0-47.0); HEMOGLOBIN 11.6 g/dl (12.0-15.5); LYMPH # 1.6 10^3/uL (1.5-5.0); LYMPH % 20.1 % (24.0-44.0); MEAN CORPUSCULAR HEMOGLOBIN 29.1 pg (27.0-33.0); MEAN CORPUSCULAR VOLUME 90.7 fl (80.0-96.0); MONO # 1.2 10^3/uL (0.0-0.8); MONO % 14.6 % (2.0-8.0); PLATELET COUNT, AUTOMATED 344 10^3/uL (150-450); RED BLOOD COUNT 3.99 10^6/uL (4.00-5.40); WHITE BLOOD COUNT 7.9 10^3/uL (4.0-10.0)
[2023-09-15] MEDS ORDERED: ISOVUE-370 76% 100ML VIAL As Ordered ONE (09:28)
[2023-09-15 09:29] LABS: BILIRUBIN,DIRECT 0.2 MG/DL (<0.4); BILIRUBIN,TOTAL 0.6 MG/DL (0.3-1.2); TOTAL PROTEIN 6.6 G/DL (5.7-8.2)
[2023-09-15 10:07] VITALS: TEMP 97.9
[2023-09-15] MEDS ORDERED: NITROFURANTOIN (MACROBID) 100 MG CAP PO ONE (10:45)
[2023-09-15] MEDS ORDERED: TAMSULOSIN 0.4 MG CAP PO ONE (10:45)
[2023-09-15] MEDS ORDERED: DICY-61 PO (10:52)
[2023-09-15] MEDS ORDERED: LOPE1LIQ18 PO (10:52)
[2023-09-15] MEDS ORDERED: FLOM0.4C39 PO (10:52)
[2023-09-15] MEDS ORDERED: MACR100C43 PO (10:52)
[2023-09-15 11:04] VITALS: BP 131/64; O2SAT 99
== END 2023-09-15 11:42 | disposition home or self-care (01) ==
LOC: M ED 07:01
DX: N20.1 Calculus of ureter (principal); R19.7 Diarrhea, unspecified; Z87.442 Personal history of urinary calculi; E83.52 Hypercalcemia; Z88.2 Allergy status to sulfonamides; Z91.030 Bee allergy status; Z79.899 Other long term (current) drug therapy; Z79.82 Long term (current) use of aspirin
CPT/HCPCS: 36415; 74177; 80047; 80076; 81001; 83690; 85025; 87088; 87186; 87210; 87507; 99284; Q9967

== ENCOUNTER → 2023-09-19 | Outpatient (CLI) | payer MEDICARE ==
[~2023-09-19] MED LIST changes: +CINA30TA5; +DICY-61 PO; +FLOM0.4C39 PO; +LOPE1LIQ18 PO; +MACR100C43 PO; +ROMO105S SQ
[2023-09-20 04:53] LABS: TOTAL 25(OH) VITAMIN D 74.2 NG/ML (20.0-100.0)
== END ==
LOC: M PLALAB 07:50
PROVIDERS: ATTEND Nurse Practitioner Family
DX: M81.0 Age-related osteoporosis without current pathological fracture (principal)

== ENCOUNTER → 2023-09-22 | Outpatient (REF) | payer MEDICARE ==
[2023-09-24 15:08] LABS: ENDOMYSIAL ABY IgA Negative (Negative); TISSUE TRANSGLUTAMINASE IgA <2 U/mL (0-3)
== END ==
LOC: M LAB REF 16:47
PROVIDERS: ATTEND Internal Medicine
DX: R19.7 Diarrhea, unspecified (principal)

== ENCOUNTER → 2023-09-23 | Outpatient (REF) | payer MEDICARE | LOC: M LAB REF 02:14 | PROVIDERS: ATTEND Internal Medicine | DX: N30.00 Acute cystitis without hematuria (principal); R19.7 Diarrhea, unspecified ==

== ENCOUNTER → 2023-10-05 | Outpatient (REF) | payer MEDICARE ==
[2023-10-05 18:24] LABS: APPEARANCE, URINE HAZY (CLEAR); BACTERIA, URINE AUTO NEGATIVE (NEGATIVE); BILIRUBIN, URINE AUTO NEGATIVE (NEGATIVE); BLOOD, URINE BLOOD 1+ (NEGATIVE); CALCIUM OXALATE CRYSTALS LARGE; COLOR, URINE YELLOW (YELLOW); GLUCOSE, URINE (UA) AUTO NEGATIVE (NEGATIVE); KETONE, URINE AUTO NEGATIVE (NEGATIVE); LEUKOCYTE ESTERASE, URINE AUTO NEGATIVE (NEGATIVE); MUCUS, URINE SMALL (NEGATIVE); NITRITE, URINE AUTO NEGATIVE (NEGATIVE); PROTEIN, URINE AUTO NEGATIVE (NEGATIVE); RBC, URINE AUTO 6 /HPF (0-3); SQUAMOUS EPITHELIAL CELL UR AU 1 /HPF (0-6); UROBILINOGEN, URINE AUTO 0.2 mg/dL (0.0-2.0); WBC, URINE AUTO 2 /HPF (0-3)
[2023-10-13 20:11] LABS: Ca Ox Monohydrate 70 % (.); Size 6x4 mm (.)
== END ==
LOC: M SMT 17:34
PROVIDERS: ATTEND Urology
DX: N20.1 Calculus of ureter (principal)

== ENCOUNTER → 2023-10-24 | Outpatient (CLI) | payer MEDICARE ==
[2023-10-24 13:04] LABS: CALCIUM LEVEL 9.6 MG/DL (8.3-10.6)
[2023-10-24 13:08] LABS: PTH INTACT 31.7 PG/ML (18.5-88.0)
== END ==
LOC: M PLALAB 11:32
PROVIDERS: ATTEND Internal Medicine Endocrinology, Diabetes & Metabolism
DX: E83.52 Hypercalcemia (principal)

== ENCOUNTER → 2023-11-10 | Outpatient (REF) | payer MEDICARE ==
[2023-11-10 15:08] LABS: PTH INTACT 21.2 PG/ML (18.5-88.0)
== END ==
LOC: M LAB REF 12:11
PROVIDERS: ATTEND Internal Medicine
DX: E83.52 Hypercalcemia (principal); M81.0 Age-related osteoporosis without current pathological fracture; E21.3 Hyperparathyroidism, unspecified; M15.9 Polyosteoarthritis, unspecified

== ENCOUNTER → 2023-11-29 | Outpatient (CLI) | payer MEDICARE | LOC: M PLALAB 09:04 | PROVIDERS: ATTEND Internal Medicine Endocrinology, Diabetes & Metabolism | DX: M81.0 Age-related osteoporosis without current pathological fracture (principal) ==

== ENCOUNTER → 2024-01-02 | Outpatient (CLI) | payer MEDICARE | LOC: M PLALAB 08:46 | PROVIDERS: ATTEND Internal Medicine Endocrinology, Diabetes & Metabolism | DX: M81.0 Age-related osteoporosis without current pathological fracture (principal) ==

== ENCOUNTER → 2024-02-06 | Outpatient (CLI) | payer MEDICARE ==
[~2024-02-06] MED LIST changes: -ASPI-161 PO; +ASPI-615 PO
== END ==
LOC: M PLALAB 14:58
PROVIDERS: ATTEND Internal Medicine Endocrinology, Diabetes & Metabolism
DX: M81.0 Age-related osteoporosis without current pathological fracture (principal)

== ENCOUNTER → 2024-03-15 | Outpatient (CLI) | payer MEDICARE | LOC: M PLALAB 15:26 | PROVIDERS: ATTEND Internal Medicine Endocrinology, Diabetes & Metabolism | DX: E83.52 Hypercalcemia (principal) ==

== ENCOUNTER → 2024-05-03 | Outpatient (REF) | payer MEDICARE | LOC: M LAB REF 13:04 | PROVIDERS: ATTEND Internal Medicine | DX: E83.52 Hypercalcemia (principal) ==

== ENCOUNTER → 2024-06-18 | Outpatient (CLI) | payer MEDICARE | LOC: M WHC 10:29 | PROVIDERS: ATTEND Internal Medicine | DX: Z12.31 Encounter for screening mammogram for malignant neoplasm of breast (principal) ==

== ENCOUNTER → 2024-09-10 | Outpatient (CLI) | payer MEDICARE | LOC: M PLARAD 11:30 → M PLAIMG 11:30 | PROVIDERS: ATTEND Urology | DX: N20.1 Calculus of ureter (principal) ==

== ENCOUNTER → 2024-11-05 | Outpatient (REF) | payer MEDICARE ==
[~2024-11-05] MED LIST changes: -POTA10808 PO; +POTA10809 PO
== END ==
LOC: M LAB REF 11:53
PROVIDERS: ATTEND Internal Medicine
DX: N39.0 Urinary tract infection, site not specified (principal)

== ENCOUNTER → 2024-11-13 | Outpatient (CLI) | payer MEDICARE | LOC: M WHC 13:44 | PROVIDERS: ATTEND Nurse Practitioner Family | DX: M81.0 Age-related osteoporosis without current pathological fracture (principal) ==

== ENCOUNTER → 2025-01-11 | Outpatient (REF) | payer MEDICARE ==
[2025-01-11 13:46] LABS: APPEARANCE, URINE HAZY (CLEAR); BACTERIA, URINE AUTO NEGATIVE (NEGATIVE); BILIRUBIN, URINE AUTO NEGATIVE (NEGATIVE); BLOOD, URINE BLOOD NEGATIVE (NEGATIVE); CALCIUM OXALATE CRYSTALS MODERATE; COLOR, URINE YELLOW (YELLOW); GLUCOSE, URINE (UA) AUTO NEGATIVE (NEGATIVE); KETONE, URINE AUTO NEGATIVE (NEGATIVE); LEUKOCYTE ESTERASE, URINE AUTO 2+ (NEGATIVE); MUCUS, URINE SMALL (NEGATIVE); NITRITE, URINE AUTO NEGATIVE (NEGATIVE); PROTEIN, URINE AUTO NEGATIVE (NEGATIVE); RBC, URINE AUTO 1 /HPF (0-3); SPECIFIC GRAVITY URINE AUTO 1.018 (1.002-1.035); SQUAMOUS EPITHELIAL CELL UR AU 1 /HPF (0-6); UROBILINOGEN, URINE AUTO 0.2 mg/dL (0.0-2.0); WBC, URINE AUTO 76 /HPF (0-3)
== END ==
LOC: M SMT 12:37
PROVIDERS: ATTEND Urology
DX: R39.9 Unspecified symptoms and signs involving the genitourinary system (principal)

== ENCOUNTER → 2025-06-03 | Outpatient (REF) | payer MEDICARE ==
[~2025-06-03] MED LIST changes: -FLOM0.4C39 PO; +TAMS-18 PO
== END ==
LOC: M LAB REF 14:30
PROVIDERS: ATTEND Internal Medicine
DX: M81.0 Age-related osteoporosis without current pathological fracture (principal)

== ENCOUNTER → 2025-06-21 | Outpatient (CLI) | payer MEDICARE | LOC: M WHC 08:57 | PROVIDERS: ATTEND Internal Medicine | DX: Z12.31 Encounter for screening mammogram for malignant neoplasm of breast (principal); R92.323 Mammographic fibroglandular density, bilateral breasts ==

== ENCOUNTER → 2025-08-16 | Outpatient (REF) | payer MEDICARE ==
[~2025-08-16] MED LIST changes: +ACET-1515 PO; -ACET650T15 PO; +METH-1100; -METH-855
[2025-08-16 18:35] LABS: APPEARANCE, URINE CLOUDY (CLEAR); BACTERIA, URINE AUTO 1+ (NEGATIVE); BILIRUBIN, URINE AUTO NEGATIVE (NEGATIVE); BLOOD, URINE BLOOD NEGATIVE (NEGATIVE); GLUCOSE, URINE (UA) AUTO NEGATIVE (NEGATIVE); KETONE, URINE AUTO NEGATIVE (NEGATIVE); LEUKOCYTE ESTERASE, URINE AUTO 3+ (NEGATIVE); NITRITE, URINE AUTO NEGATIVE (NEGATIVE); PROTEIN, URINE AUTO NEGATIVE (NEGATIVE); RBC, URINE AUTO 8 /HPF (0-3); SPECIFIC GRAVITY URINE AUTO 1.013 (1.002-1.035); SQUAMOUS EPITHELIAL CELL UR AU 0 /HPF (0-6); UROBILINOGEN, URINE AUTO 0.2 mg/dL (0.0-2.0); WBC, URINE AUTO 87 /HPF (0-3)
== END ==
LOC: M SMT 16:46
PROVIDERS: ATTEND Urology
DX: N39.0 Urinary tract infection, site not specified (principal)

== ENCOUNTER → 2025-08-26 | Outpatient (REF) | payer MEDICARE ==
[2025-08-26 14:03] LABS: AMORPHOUS SEDIMENT SMALL (NEGATIVE); APPEARANCE, URINE HAZY (CLEAR); BACTERIA, URINE AUTO NEGATIVE (NEGATIVE); BILIRUBIN, URINE AUTO NEGATIVE (NEGATIVE); BLOOD, URINE BLOOD NEGATIVE (NEGATIVE); GLUCOSE, URINE (UA) AUTO NEGATIVE (NEGATIVE); KETONE, URINE AUTO NEGATIVE (NEGATIVE); LEUKOCYTE ESTERASE, URINE AUTO NEGATIVE (NEGATIVE); MUCUS, URINE SMALL (NEGATIVE); NITRITE, URINE AUTO NEGATIVE (NEGATIVE); PROTEIN, URINE AUTO NEGATIVE (NEGATIVE); RBC, URINE AUTO 0 /HPF (0-3); SPECIFIC GRAVITY URINE AUTO 1.014 (1.002-1.035); SQUAMOUS EPITHELIAL CELL UR AU 0 /HPF (0-6); UROBILINOGEN, URINE AUTO 0.2 mg/dL (0.0-2.0); WBC, URINE AUTO 1 /HPF (0-3)
== END ==
LOC: M SMT 12:40
PROVIDERS: ATTEND Urology
DX: R39.9 Unspecified symptoms and signs involving the genitourinary system (principal)

== ENCOUNTER → 2025-09-16 | Outpatient (CLI) | payer MEDICARE | LOC: M PLAIMG 10:54 | PROVIDERS: ATTEND Urology | DX: N20.0 Calculus of kidney (principal) ==

== ENCOUNTER → 2025-09-16 | Outpatient (REF) | payer MEDICARE ==
[2025-09-16 17:29] LABS: APPEARANCE, URINE HAZY (CLEAR); BACTERIA, URINE AUTO NEGATIVE (NEGATIVE); BILIRUBIN, URINE AUTO NEGATIVE (NEGATIVE); BLOOD, URINE BLOOD NEGATIVE (NEGATIVE); GLUCOSE, URINE (UA) AUTO NEGATIVE (NEGATIVE); KETONE, URINE AUTO NEGATIVE (NEGATIVE); LEUKOCYTE ESTERASE, URINE AUTO 2+ (NEGATIVE); MUCUS, URINE SMALL (NEGATIVE); NITRITE, URINE AUTO NEGATIVE (NEGATIVE); PROTEIN, URINE AUTO 1+ mg/dL (NEGATIVE); RBC, URINE AUTO 4 /HPF (0-3); SPECIFIC GRAVITY URINE AUTO 1.013 (1.002-1.035); SQUAMOUS EPITHELIAL CELL UR AU 0 /HPF (0-6); UROBILINOGEN, URINE AUTO 0.2 mg/dL (0.0-2.0); WBC, URINE AUTO 50 /HPF (0-3)
== END ==
LOC: M LABSMT 15:42
PROVIDERS: ATTEND Nurse Practitioner Family
DX: R39.9 Unspecified symptoms and signs involving the genitourinary system (principal)